=== PATIENT | male | born 1980 | race Hispanic/Latino ===

== ENCOUNTER 2019-06-30 11:45 | Outpatient (CLI) | payer OTHER, SELFPAY ==
--- NOTE | ~2019-06-30 | XR_ITS ---
EXAMINATION: XR chest 2V EXAM DATE: 06/30/2019 13:12 INDICATION: History of nicotine use. TECHNIQUE: Frontal and lateral projections of the chest obtained and reviewed. There are no prior terrell dies for comparison. FINDINGS: Minimal left midlung zone linear atelectasis. The lungs are otherwise clear. There are no pleural effusions. The cardiomediastinal silhouette is within normal limits. There is no pneumothor ax suspected. The bones and soft tissues are unremarkable. IMPRESSION: Minimal left midlung zone linear atelectasis. Reviewed, dictated and finalized at location A. VERY COACH
--- NOTE | ~2019-06-30 | XR_ITS ---
EXAMINATION: XR knee RT 2V EXAM DATE: 06/30/2019 13:11 INDICATION: No known recent injury provided at this time. Pain of the right knee. TECHNIQUE: Right knee frontal and lateral projections. There is no prior study for comparison. FINDINGS: There are no acute right knee fractures or dislocations identified. There is no subcutaneo us gas. The soft tissue is unremarkable. There are no radiopaque foreign bodies. No joint effusio n. IMPRESSION: 1. Unremarkable XR knee RT 2V exam. Reviewed, dictated and finalized at location A. LE PRESS OPERATOR
[2019-06-30 17:39] LABS: Add Urine Microscopic? NO; Appearance Urine Clear (Clear); Bilirubin Urine Negative (Negative); Blood Urine Negative (Negative); Color Urine Yellow (Yellow); Glucose Urine UA Negative (Negative); Ketones Urine Negative (Negative); Leukocyte Esterase Ur Negative LEU/UL (Negative); Nitrate Urine Negative (Negative); Protein Urine Negative (Negative); Specific Grav Ur 1.021 (1.001-1.035); Urobilinogen Urine Negative mg/dL (<2.0)
[2019-06-30 17:40] LABS: Basophils Percent Auto 0.3 % (0.2-1.2); Eosinophils Absolute Auto 0.2 K/mm3 (0-0.3); Eosinophils Percent Auto 1.4 % (0-4.4); Hematocrit 44.9 % (42.0-52.0); Hemoglobin 15.2 g/dL (14.0-18.0); Immature Granulocyte Absolute 0.04 K/mm3 (0.00-0.031); Immature Granulocyte Percent A 0.4 % (0-0.5); Lymphocytes Absolute Auto 2.54 K/mm3 (0.9-3.2); Lymphocytes Percent Auto 23.9 % (18.3-44.2); Mean Corpuscular HGB Conc 33.9 g/dl (32-36); Mean Corpuscular Hemoglobin 30.6 pg (26-34); Mean Corpuscular Volume 90.5 fl (80-100); Mean Platelet Volume 10.2 fl (7.4-10.4); Monocytes Absolute Auto 0.7 K/mm3 (0.1-0.6); Monocytes Percent Auto 6.3 % (2.6-8.5); Neutrophils Absolute Auto 7.2 K/mm3 (1.3-6.7); Neutrophils Percent Auto 67.7 % (45.5-73.1); Platelet Count Result 322 k/mm3 (150-375); Red Blood Count 4.96 M/mm3 (4.6-6.20); Red Cell Distribution Width 12.3 % (11.5-14.5); White Blood Count 10.6 K/mm3 (4.5-10.0)
[2019-06-30 17:46] LABS: Alanine Aminotransferase 42 U/L (4-50); Albumin Level 4.3 g/dL (3.5-5.1); Alkaline Phosphatase 128 U/L (38-126); Aspartate Amino Transferase 32 U/L (17-59); Bilirubin,Total 0.4 mg/dL (0.2-1.3); Blood Urea Nitrogen 16 mg/dL (9-20); CRP 3.1 mg/dL (<1.0); Calcium 9.3 mg/dL (8.4-10.2); Carbon Dioxide 25 mmol/L (22-30); Chloride 99 mmol/L (98-107); Cholesterol 171 mg/dL (0-200); Estimated Glomerular Filt Rate > 60; Glucose 92 mg/dL (75-110); HDL Direct 39 mg/dL; Potassium 4.4 mmol/L (3.4-5.0); Sodium 136 mmol/L (137-145); Triglycerides 133 mg/dL (<150)
[2019-06-30 17:54] LABS: LDL Cholesterol Direct 122 mg/dL
[2019-06-30 18:01] LABS: Free T4 Free Thyroxine 1.18 ng/mL (0.78-2.19)
[2019-06-30 18:32] LABS: Vitamin D 25 Hydroxy < 12.8 ng/mL
[2019-06-30 18:47] LABS: Folic Acid 9.7 ng/mL (2.76->20)
[2019-07-03 04:50] LABS: Sex Hormone Binding Globulin 38 nmol/L (10-50)
[2019-07-03 05:56] LABS: FSH 4.4 mIU/mL (1.6-8.0); LH 4.7 mIU/mL (1.5-9.3); Triiodothyronine T3 Free 3.2 pg/mL (2.3-4.2)
[2019-07-03 05:59] LABS: C-Peptide 2.35 ng/mL (0.80-3.85); Prolactin 14.1 ng/mL (***)
[2019-07-03 12:39] LABS: T3 Reverse 16 ng/dL (8-25)
[2019-07-04 10:03] LABS: Testosterone Free 27.5 pg/mL (35.0-155.0); Testosterone Total 220 ng/dL (250-1100)
[2019-07-08 18:42] LABS: Estradiol, Ultrasensitive 38 pg/mL (< OR = 29)
== END 2019-06-30 11:46 | disposition home or self-care (01) ==
PROVIDERS: PCP Family Medicine; Visit Provider Family Medicine
DX: R53.83 Other fatigue (principal); E66.9 Obesity, unspecified; Z79.899 Other long term (current) drug therapy; Z82.62 Family history of osteoporosis; Z83.3 Family history of diabetes mellitus; G47.19 Other hypersomnia; K21.9 Gastro-esophageal reflux disease without esophagitis; N99.89 Other postprocedural complications and disorders of genitourinary system; M25.561 Pain in right knee; Z87.891 Personal history of nicotine dependence
CPT/HCPCS: 36415; 71046; 73560; 80053; 80061; 81003; 82306; 82607; 82670; 82746; 83001; 83002; 84146; 84270; 84402; 84403; 84439; 84443; 84481; 84482; 84681; 85025; 86140

== ENCOUNTER → 2020-02-06 11:31 | Outpatient (CLI) | payer OTHER, SELFPAY ==
--- NOTE | ~2020-02-06 | XR_ITS ---
XR lumbar spine 2-3V DATE: 02/06/2020 11:50 INDICATION: Back pain. Mass at right low back. TECHNIQUE: AP, lateral, coned lateral lumbosacral views COMPARISON: None FINDINGS: There is minimal compensatory levoscoliosis of the lumbar spine. Normal alignment of the alex mbar spine. No fracture or bone destruction or spondylolisthesis. The included T11-L5 pedicles are intact. There is mild to moderate loss of interspace height at L3-4 and L4-5. The sacroiliac joints are intact. IMPRESSION: Mild anterolisthesis height at L3-4 and L4-5 Reviewed, dictated and finalized at location A.
== END ==
LOC: EXPBRAD 11:35
PROVIDERS: PCP Family Medicine; Visit Provider Family Medicine
DX: M54.9 Dorsalgia, unspecified (principal)
CPT/HCPCS: 72100

== ENCOUNTER 2020-07-02 13:02 | Outpatient (CLI) | payer OTHER, SELFPAY ==
--- NOTE | ~2020-07-02 | XR_ITS ---
EXAMINATION: XR wrist RT 2V EXAM DATE: 07/02/2020 13:12 INDICATION: Radial styloid tenosynovitis, lateral right wrist pain. TECHNIQUE: Frontal and lateral projections of the right wrist. There is no prior study for comparis on. FINDINGS: There are no acute fractures or dislocations identified. There is no subcutaneous gas. Th e soft tissue is unremarkable. There are no radiopaque foreign bodies. There are no bony erosions identified. IMPRESSION: 1. Unremarkable XR wrist RT 2V exam. Reviewed, dictated and finalized at location B. BLE DISPATCHER
== END 2020-07-02 13:03 | disposition home or self-care (01) ==
LOC: ANHBWCIMG 13:05
PROVIDERS: PCP Family Medicine; Visit Provider Family Medicine
DX: M65.4 Radial styloid tenosynovitis [de Quervain] (principal); M25.539 Pain in unspecified wrist
CPT/HCPCS: 73100

== ENCOUNTER 2020-10-20 12:47 | Outpatient (CLI) | payer OTHER, SELFPAY ==
[2020-10-20 20:08] LABS: CRP 2.8 mg/dL (<1.0)
[2020-10-20 21:07] LABS: Erythrocyte Sedimentation Rate 8 mm/hr (0-20)
[2020-10-20 22:02] LABS: Rheumatoid Factor < 8.6 IU/ML (<12)
== END 2020-10-20 12:48 | disposition home or self-care (01) ==
LOC: ANHBWCLAB 12:50
PROVIDERS: PCP Family Medicine; Visit Provider Family Medicine
DX: M18.9 Osteoarthritis of first carpometacarpal joint, unspecified (principal); R51.9 Headache, unspecified
CPT/HCPCS: 36415; 85652; 86038; 86140; 86430

== ENCOUNTER 2020-11-08 08:26 | Outpatient (CLI) | payer OTHER, SELFPAY ==
--- NOTE | ~2020-11-08 | MR_ITS ---
EXAMINATION: MR brain/brain stem wo/w con EXAM DATE: 11/08/2020 09:18 INDICATION: M79.641 - Pain in right hand pain in right hand. TECHNIQUE: Magnetic resonance imaging (MRI) of the brain/brain stem obtained without contrast. Sagit juan T1, axial diffusion, gradient echo (T2*), T1, T2, FLAIR sequences obtained. Patient was then inj ected with 20 cc intravenous Multihance contrast. Axial and coronal postcontrast T1 weighted sequence s obtained. There is no prior study for comparison. FINDINGS: There are no areas of restricted diffusion to suggest acute infarction. There is no acute hemorrhage seen on the T2*, a hemosiderin sensitive sequence. No intraparenchymal brain mass. The ve ntricles are normal in size. There are no extra-axial collections. Flow voids are seen in the cereb ral arteries on the T2-weighted sequences consistent with their expected patency. The orbits are unr emarkable. Soft tissue is unremarkable. There are no areas of abnormal enhancement on the postcont rast images. IMPRESSION: 1. Normal brain MRI examination. Reviewed, dictated and finalized at location B.
[2020-11-08 08:56] LABS: Estimated Glomerular Filt Rate > 60
== END 2020-11-08 08:27 ==
PROVIDERS: PCP Family Medicine; Visit Provider Family Medicine
DX: M79.641 Pain in right hand (principal)
CPT/HCPCS: 70553; A9577

== ENCOUNTER 2020-12-02 13:21 | Outpatient (CLI) | payer OTHER, SELFPAY ==
--- NOTE | ~2020-12-02 | MR_ITS ---
EXAMINATION: MR hand RT wo con DATE: 12/02/2020 14:47 INDICATION: Right hand pain and swelling. TECHNIQUE: Magnetic resonance imaging (MRI) of the right hand was performed without intravenous contr ast. Sequences included coronal, sagittal, and axial T1-weighted FSE and T2-weighted FS FSE. COMPARISON: Right wrist radiographs 07/02/2020 FINDINGS: Bone alignment is normal. No fracture. There is mild osteoarthritis of first carpometacarpa l joint. There is moderate osteoarthritis of first metacarpophalangeal joint including osteophytes, c ortical remodeling, and bone marrow edema. The flexor and extensor tendons are normal. IMPRESSION: 1. 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 Reviewed, dictated and finalized at location A.
--- NOTE | ~2020-12-02 | MR_ITS ---
EXAMINATION: MR wrist RT wo con DATE: 12/02/2020 14:47 INDICATION: Right hand and wrist pain and swelling. TECHNIQUE: Magnetic resonance imaging (MRI) of the wrist was performed without intravenous contrast. Sequences performed include coronal T1-weighted FSE, coronal PD-weighted FS FSE, axial PD-weighted FS FSE, axial PD-weighted FSE, sagittal PD-weighted FSE, and sagittal PD-weighted FS FSE. COMPARISON: None FINDINGS: Intrinsic ligaments: There is a full-thickness tear of volar component of scapholunate ligament at its scaphoid attachment . Lunotriquetral ligament is normal. Triangular fibrocartilage complex (TFCC): The triangular fibrocartilage is normal. Extensor wrist: Abductor pollicis longus and extensor pollicis brevis tendons demonstrate increased signal intensity and surrounding edema, consistent with severe tendinopathy (De Quervain's tendinopathy). There is mil d extensor digitorum and extensor carpi ulnaris tendinopathy. Flexor wrist: The flexor tendons are normal. There is increased signal in median nerve suspicious for neuropathy, b ut patient signs and symptoms are more relevant than the MRI appearance. Guyon's canal: The ulnar nerve is normal. Bones/other: Bone alignment is normal. No fracture. There is mild osteoarthritis of first carpometacarpal joint. IMPRESSION: 1. De Quervain's tendinopathy. 2. Full-thickness tear of volar component of scapholunate ligament. 3. Mild osteoarthritis of first carpometacarpal joint. Reviewed, dictated and finalized at location A.
== END 2020-12-02 13:22 ==
PROVIDERS: Visit Provider Family Medicine
DX: M19.041 Primary osteoarthritis, right hand (principal); M19.031 Primary osteoarthritis, right wrist
CPT/HCPCS: 73218; 73221